=== PATIENT | male | born 1955 | race African-American/Black ===

== ENCOUNTER 2023-06-04 12:36 | Emergency (ER) | payer SELFPAY ==
[~2023-06-04] VITALS: Ht 177.8 cm; Wt 90.0 kg
[2023-06-04 12:50] VITALS: O2SAT 97
[2023-06-04] MEDS ORDERED: HYDRALAZINE HCL 25MG TABLET PO ONE (13:00)
[2023-06-04 19:00] VITALS: BP 142/80; PULSE 66; RESP 18; TEMP 99.2
== END 2023-06-04 19:11 | disposition home or self-care (01) ==
LOC: ER 12:36
DX: I10 Essential (primary) hypertension (principal); E05.90 Thyrotoxicosis, unspecified without thyrotoxic crisis or storm
CPT/HCPCS: 93005; 99283